=== PATIENT | female | born 1990 | race Caucasian/White ===

== ENCOUNTER 2016-10-16 14:27 | Emergency (ER) | payer SELFPAY ==
[~2016-10-16] VITALS: Ht 175.3 cm; Wt 99.8 kg
[~2016-10-16 14:27] MED LIST: ACETAMINOPHEN1 EAC1 PO; ALBUTEROL SULF8.5 GM INH; COLD-FLU RELIE295 ML PO; ZITHROMAX250 MG PO; [UNRECOGNIZED DRUG - OTHER]
[2016-10-16] MEDS ORDERED: VENTOLIN HFA18 GM INH (16:02)
== END 2016-10-16 16:12 | disposition home or self-care (01) ==
LOC: ED 14:27
DX: J45.909 Unspecified asthma, uncomplicated (principal); Z87.891 Personal history of nicotine dependence; Z88.0 Allergy status to penicillin; Z79.2 Long term (current) use of antibiotics; Z79.899 Other long term (current) drug therapy
CPT/HCPCS: 99283

== ENCOUNTER 2017-11-24 07:31 | Emergency (ER) | payer OTHER ==
[~2017-11-24] VITALS: Ht 175.3 cm; Wt 117.9 kg
[~2017-11-24 07:31] MED LIST changes: +VENTOLIN HFA18 GM INH
--- OUTSIDE RECORDS SUMMARY | 2017-11-24 07:36 | XMS ---
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 Corine has no Care Guidelines for this patient. Arin VISIT COUNT (12 MO.) 1 JOSE Munoz TOTAL 1 NOTE: Visits indicate total known visits. ED/C VISIT TRACKING (12 MO.) 11/24/2017 07:31 [facility] TYPE: Emergency COMPLAINT: - RIGHT SHOULDER INJURY INPATIENT VISIT TRACKING (12 MO.) No inpatient visits to display in this time frame [email or web address]
== END 2017-11-24 09:35 | disposition home or self-care (01) ==
LOC: ED 07:31
DX: S46.911A Strain of unspecified muscle, fascia and tendon at shoulder and upper arm level, right arm, initial encounter (principal); R20.2 Paresthesia of skin; F17.200 Nicotine dependence, unspecified, uncomplicated; Z88.6 Allergy status to analgesic agent; Z88.5 Allergy status to narcotic agent; Z88.0 Allergy status to penicillin; X58.XXXA Exposure to other specified factors, initial encounter; Y92.89 Other specified places as the place of occurrence of the external cause; Y99.0 Civilian activity done for income or pay
CPT/HCPCS: 99283; 99406

== ENCOUNTER 2018-05-16 08:27 | Emergency (ER) | payer SELFPAY ==
[~2018-05-16] VITALS: Ht 175.3 cm; Wt 117.9 kg
--- OUTSIDE RECORDS SUMMARY | 2018-05-16 08:30 | XMS ---
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 Corine has no Care Guidelines for this patient. Arin VISIT COUNT (12 MO.) 3 JOSE Munoz TOTAL 3 NOTE: Visits indicate total known visits. ED/C VISIT TRACKING (12 MO.) 05/16/2018 08:28 [facility] TYPE: Emergency COMPLAINT: - R FINGER PAIN,INJURY 02/25/2018 16:07 [facility] TYPE: Emergency COMPLAINT: - CHEST PAIN/SOB DIAGNOSES: - Nicotine dependence, unspecified, uncomplicated - Allergy status to narcotic agent status - Other chest pain - Anxiety disorder, unspecified - Chest pain, unspecified - Allergy status to analgesic agent status - Unspecified asthma, uncomplicated - Allergy status to penicillin - FPC (current) use of inhaled steroids 11/24/2017 07:31 [facility] [place] TYPE: Emergency COMPLAINT: - RIGHT SHOULDER INJURY DIAGNOSES: - Other specified places as the place of occurrence of the external cause - Strain of unspecified muscle, fascia and tendon at shoulder and upper arm level, right arm, initial encounter - Paresthesia of skin - Allergy status to penicillin - Nicotine dependence, unspecified, uncomplicated - Allergy status to narcotic agent status - Allergy status to analgesic agent status - Exposure to other specified factors, initial encounter - Pain in right shoulder - Civilian activity done for income or pay INPATIENT VISIT TRACKING (12 MO.) No inpatient visits to display in this time frame [email or web address]
== END 2018-05-16 08:45 | disposition home or self-care (01) ==
LOC: ED 08:27
DX: M79.644 Pain in right finger(s) (principal)

== ENCOUNTER 2019-03-21 15:42 | Emergency (ER) | payer OTHER ==
[~2019-03-21] VITALS: Ht 175.3 cm; Wt 127.0 kg
--- OUTSIDE RECORDS SUMMARY | 2019-03-21 15:46 | XMS ---
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 Arin VISIT COUNT (12 MO.) 3 JOSE Munoz TOTAL 3 NOTE: Visits indicate total known visits. ED/UCC VISIT TRACKING (12 MO.) 03/21/2019 15:43 [facility] TYPE: Emergency COMPLAINT: - PELVIC PAIN 10/05/2018 01:52 [facility] TYPE: Emergency COMPLAINT: - HEADACHE, NECK PAIN NON INJURY DIAGNOSES: - Allergy status to penicillin - Headache - Allergy status to narcotic agent status - Nicotine dependence, unspecified, uncomplicated 05/16/2018 08:28 [facility] TYPE: Emergency COMPLAINT: - R FINGER PAIN DIAGNOSES: - Pain in right finger(s) INPATIENT VISIT TRACKING (12 MO.) No inpatient visits to display in this time frame [email or web address]
== END 2019-03-21 19:00 | disposition home or self-care (01) ==
LOC: ED 15:42
DX: S32.10XD Unspecified fracture of sacrum, subsequent encounter for fracture with routine healing (principal); J45.909 Unspecified asthma, uncomplicated; F41.9 Anxiety disorder, unspecified; Z88.5 Allergy status to narcotic agent; Z88.0 Allergy status to penicillin
CPT/HCPCS: 72192; 84703; 99284-25; 99406

== ENCOUNTER 2023-10-13 17:19 | Emergency (ER) | payer BC ==
[~2023-10-13] VITALS: Ht 175.3 cm; Wt 148.1 kg
[~2023-10-13 17:19] MED LIST changes: +ACETAMINOPHEN500 MG PO; +DIAZEPAM5 MG PO; +IBU600 MG PO; +IBUPROFEN600 MG PO; +LEVOTHYROXINE100 MCG PO; +LEVOTHYROXINE200 MCG PO; +LIDODERM1 EACH TOP; +MAPAP500 MG PO; +MIRTAZAPINE7.5 MG PO
[2023-10-13] MEDS ORDERED: ondansetron HCL 4 MG/2 ML VIAL IV ONE ×2 (18:30→19:00)
[2023-10-13] MEDS ORDERED: KETOROLAC TROMETHAMINE 30 MG/ML VIAL IV ONE (18:30)
[2023-10-13] MEDS ORDERED: SODIUM CHLORIDE 0.9% 1,000 ML IV ONE (18:30)
[2023-10-13] MEDS ORDERED: ONDANSETRON 4 MG TAB ODT SL ONE (18:45)
[2023-10-13 18:48] LABS: RBC 4.75 M/ul (4.3-5.7)
[2023-10-13 18:50] LABS: BASOPHILS 0.8 % (0-2); EOSINOPHILS 1.2 % (0-6); HEMATOCRIT 36.4 % (35.0-50.0); HEMOGLOBIN 11.1 g/dL (12.0-18.0); LYMPHOCYTES 27.6 % (24-44); MCH 23.4 (27-36); MCHC 30.5 g/dl (30-36); MCV 76.7 fl (81-99); MONOCYTES 7.6 % (0-12); NEUTROPHILS 62.8 % (39-80); PLATELET COUNT 436 K/uL (140-440); RDW 15.1 (10.5-15.0)
[2023-10-13] MEDS ORDERED: HYDROmorphone HCL 1 MG/ML SYR IV ONE ×2 (19:00→19:30)
[2023-10-13 19:08] LABS: ALBUMIN 4.1 g/dL (3.4-5.0); ALBUMIN/GLOBULIN RATIO 0.93 (1.1-2.4); ANION GAP 17.6 (7-21); BILIRUBIN, TOTAL 0.4 ng/dL (0.2-1.0); BUN/CREATININE RATIO 11.92 (6.0-28.6); CALCIUM 9.8 mg/dL (8.5-10.1); CREATININE, SERUM 1.09 mg/dL (0.55-1.02); POTASSIUM 3.6 mmol/L (3.5-5.1); PROTEIN, TOTAL 8.5 g/dL (6.4-8.2)
[2023-10-13] MEDS ORDERED: FAMOTIDINE 20 MG/ 2 ML VIAL IV ONE (19:45)
[2023-10-13] MEDS ORDERED: droPERidol 5 MG/2 ML VIAL IV ONE (19:45)
[2023-10-13 20:52] LABS: BILIRUBIN, URINE POSITIVE (negative); BLOOD/HGB, URINE NEGATIVE (Negative); KETONE, URINE NEGATIVE (Negative); LEUK ESTERASE, URINE NEGATIVE (negative); NITRITE, URINE NEGATIVE (negative)
[2023-10-13 21:09] LABS: BACTERIA, URINE RARE /hpf (negative); CASTS, URINE HYALINE 1+ \\lpf; COLLECTION TYPE, URINE CLEAN CATCH; CRYSTALS, URINE NONE SEEN (0-1+); EPITHELIAL CELLS, URINE SQUAMOUS 2+ /lpf (0-1+); REFLEX CULTURE, URINE No (No)
[2023-10-13 22:26] VITALS: BP 132/85
== END 2023-10-13 22:24 | disposition home or self-care (01) ==
LOC: ED 17:19
PROVIDERS: Emergency Medicine
DX: R10.31 Right lower quadrant pain (principal); J45.909 Unspecified asthma, uncomplicated; F17.200 Nicotine dependence, unspecified, uncomplicated; Z88.8 Allergy status to other drugs, medicaments and biological substances; Z88.0 Allergy status to penicillin; Z88.5 Allergy status to narcotic agent; Z91.018 Allergy to other foods; Z79.899 Other long term (current) drug therapy; Z79.890 Hormone replacement therapy; Z90.49 Acquired absence of other specified parts of digestive tract
CPT/HCPCS: 36415; 51701; 74176; 80053; 81001; 83690; 84703; 85025; 99284-25; J1170; J1790; J1885; J2405; J7030